=== PATIENT | female | born 1980 | race Caucasian/White ===

== ENCOUNTER 2018-10-03 15:23 | Emergency (ER) | payer SELFPAY ==
[2018-10-03] MEDS ORDERED: Acetaminophen/HYDROcodone 325-5 MG Tab PO ONE (16:27)
--- NOTE | 2018-10-03 18:09 | EDM.PDOC ---
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 She states she does have history of polycystic ovarian disease and also history of endometriosis. 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 Therefore she was not able to have the surgery. The last 2 weeks she has had quite severe left pelvic discomfort and at times "heavy vaginal bleeding and at other times just brown spotting. No nausea vomiting or diaphoresis. No chest pain or difficulty breathing. No voiding symptoms. Left Lower Abdominal Pain Score (Numeric/FACES): 7 - Related Data Allergies Allergy/AdvReac Type Severity Reaction Status Date / Time amoxicillin Allergy Hives Verified 10/03/18 15:44 diphenhydramine Allergy Itching Verified 10/03/18 15:44 [From Benadryl] Penicillins Allergy Hives Verified 10/03/18 15:44 Home Meds: Home Meds . 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 ANODIC OPERATOR History: polycystic ovaries and endometrosis - Past Surgical History Female Surgical History: Reports: Section Social & Family History - Tobacco Use Smoking Status *Q: Current Every Day Smoker Years of Tobacco use: 10 Packs/Tins Daily: 0.5 - Caffeine Use Caffeine Use: Reports: Coffee, Soda - Recreational Drug Use Recreational Drug Use: No ED ROS GENERAL - Review of Systems Review Of Systems: See Below Constitutional: Denies: Fever, Chills HEENT: Reports: No Symptoms Respiratory: Denies: Shortness of Breath, Pleuritic Chest Pain Cardiovascular: Denies: Chest Pain GI/Abdominal: Reports: Abdominal Pain (Lower pelvic discomfort). Denies: Diarrhea, Nausea, Vomiting Musculoskeletal: Denies: Shoulder Pain, Arm Pain, Back Pain Skin: Reports: No Symptoms Neurological: Reports: No Symptoms ED EXAM, RENAL/ - Physical Exam Exam: See Below General Appearance: Alert, Mild Distress Eye Exam: Bilateral Eye: PERRL Throat/Mouth: Normal Inspection, Normal Oropharynx Head: Atraumatic. No: Facial Swelling Neck: Supple, Full Range of Motion Respiratory/Chest: No Respiratory Distress, Lungs Clear, Normal Breath Sounds Cardiovascular: Regular Rate, Rhythm GI/Abdominal: Soft, Other (Very mild tenderness left lower abdomen and pelvis) (Female) Exam: Normal External Exam, Normal Speculum Exam, Adnexal Tenderness (Left-sided). No: Vaginal Bleeding (At time of exam), Vaginal Discharge (At time of exam) Back Exam: No: CVA Tenderness (L), CVA Tenderness (R) Extremities: Normal Inspection. No: Pedal Edema Neurological: Alert, No Motor/Sensory Deficits Skin Exam: Warm, Dry, Normal Color Course - Vital Signs Last Recorded V/S: Last Vital Signs Temp 98.0 F 10/03/18 15:32 Pulse 80 10/03/18 15:32 Resp 13 10/03/18 15:32 BP 133/61 10/03/18 15:32 Pulse Ox 100 10/03/18 15:32 - Orders/Labs/Meds Labs: Laboratory Tests 10/03/18 10/03/18 10/03/18 Range/Units 16:45 16:45 16:45 WBC 7.70 (3.98-10.04) K/mm3 RBC 4.75 (3.98-5.22) M/mm3 Hgb 12.7 (11.2-15.7) gm/L Hct 40.2 (34.1-44.9) % MCV 84.6 (79.4-94.8) fl MCH 26.7 (25.6-32.2) pg MCHC 31.6 L (32.2-35.5) g/dl RDW Std Deviation 46.4 H (36.4-46.3) fL Plt Count 299 (182-369) K/mm3 MPV 9.5 (9.4-12.3) fl Neut % (Auto) 69.8 (34.0-71.1) % Lymph % (Auto) 19.6 (19.3-51.7) % [place] % (Auto) 8.4 (4.7-12.5) % Eos % (Auto) 1.8 (0.7-5.8) Baso % (Auto) 0.3 (0.1-1.2) % Neut # (Auto) 5.37 (1.56-6.13) K/mm3 Lymph # (Auto) 1.51 (1.18-3.74) K/mm3 [place] # (Auto) 0.65 H (0.24-0.36) K/mm3 Eos # (Auto) 0.14 (0.04-0.36) K/mm3 Baso # (Auto) 0.02 (0.01-0.08) K/mm3 Sodium 144 (136-145) mEq/L Potassium 3.6 (3.5-5.1) mEq/L Chloride 107 (98-107) mEq/L Carbon Dioxide 26 (21-32) mEq/L Anion Gap 14.6 (5-15) BUN 12 (7-18) mg/dL Creatinine 1.0 (0.55-1.02) mg/dL Est Cr Clr Drug Dosing 72.11 mL/min Estimated GFR (MDRD) > 60 (>60) mL/min BUN/Creatinine Ratio 12.0 L (14-18) Glucose 102 (74-106) mg/dL Calcium 9.0 (8.5-10.1) mg/dL Total Bilirubin 0.3 (0.2-1.0) mg/dL AST 15 (15-37) U/L ALT 28 (14-59) U/L Alkaline Phosphatase 74 (46-116) U/L Total Protein 7.0 (6.4-8.2) g/dl Albumin 3.6 (3.4-5.0) g/dl Globulin 3.4 gm/dL Albumin/Globulin Ratio 1.1 (1-2) HCG, Qual Negative (NEGATIVE) Meds: Medications Discontinued Medications Generic Name Dose Route Start Last Admin Trade Name Freq PRN Reason Stop Dose Admin Hydrocodone Bitart/Acetaminophen 1 tab 10/03/18 16:27 10/03/18 16:36 [place] 325-5 Mg PO 10/03/18 16:28 1 tab ONETIME ONE Administration - Re-Assessments/Exams Free Text/Narrative Re-Assessment/Exam: 10/03/18 18:22 HCG was negative as expected, white blood count normal hemoglobin 12.7, chemistries normal, discharge instructions as documented. Departure - Departure Time of Disposition: 18:07 Disposition: Home, Self-Care 01 Condition: Fair Clinical Impression: Pelvic pain - Discharge Information Instructions: Pelvic Pain, Female, [id number] Referrals: Elysia Campoverde PA [Primary Care Provider] - Forms: ED Department Discharge Additional Instructions: Continue to take Advil or ibuprofen 600 mg about 3 times daily with food. Tylenol in between doses for extra pain relief or hydrocodone if needed for severe pain. Do not drive or work when taking hydrocodone. Follow-up with your provider at the [facility] in 3-4 days for recheck or if you prefer to see one of our [facility] medical providers at [facility] call [phone] for appointment.
== END 2018-10-03 18:16 | disposition home or self-care (01) ==
LOC: EDBD 15:23 → JD.ED 15:23
DX: R10.2 Pelvic and perineal pain (principal); F17.210 Nicotine dependence, cigarettes, uncomplicated; Z88.1 Allergy status to other antibiotic agents; Z88.8 Allergy status to other drugs, medicaments and biological substances; Z88.0 Allergy status to penicillin
CPT/HCPCS: 36415; 80053; 84703; 85025; 99284; A9270; 99283